=== PATIENT | female | born 1965 | race Caucasian/White ===

== ENCOUNTER → 2020-01-14 11:32 | Outpatient (BNVA) | payer OTHER, SELFPAY | PROVIDERS: Referring Provider Family Medicine; Visit Provider Specialist | DX: M25.512 Pain in left shoulder (principal) | CPT/HCPCS: 73030 ==

== ENCOUNTER → 2020-06-18 11:52 | Outpatient (BNVA) | payer MEDICARE, SELFPAY | PROVIDERS: Visit Provider Family Medicine | DX: G43.709 Chronic migraine without aura, not intractable, without status migrainosus (principal); E11.9 Type 2 diabetes mellitus without complications; J30.9 Allergic rhinitis, unspecified; R76.8 Other specified abnormal immunological findings in serum | CPT/HCPCS: 80053; 80061; 83036; 83721; 85025; 85651; 86140; 86431 ==

== ENCOUNTER 2020-06-30 17:14 | Outpatient (CLI) | payer MEDICARE, SELFPAY ==
--- NOTE | 2020-06-30 17:30 | MR_ITS ---
WS: [id number] MRI CERVICAL SPINE NONCONTRAST TECHNIQUE: Sagittal T1, T2 and STIR imaging. Axial T2, gradient, and fiesta imaging. CLINICAL INFORMATION: M54.12 - Radiculopathy, cervical region COMPARISON: None. FINDINGS: Straightening of the normal cervical lordosis. No high-grade central canal stenosis. Cord signal is n ormal. Anterior interbody cervical fusion C5-C6. C2-C3: Tiny central protrusion. Spinal canal and foramen are patent. C3-C4: Disc osteophyte complex with endplate ridging. Shallow bilobed central disc osteophyte protrus ion. Mild central canal stenosis. Mild right greater than left bony foraminal narrowing. C4-C5: Disc osteophyte complex with endplate ridging. Mild central canal stenosis. Mild left foramina l narrowing. C5-C6: Prior postoperative changes anterior interbody cervical fusion. Mild left and no significant r ight foraminal narrowing. Spinal canal is patent. C6-C7: Mild disc bulge with endplate ridging. Spinal canal and foramen are patent. Mild facet arthrop athy. C7-T1: Normal. Visualized brain stem structures: Normal. Prevertebral soft tissues: Normal. MR/MR cervical spin wo con* [id number] IMPRESSION: 1. Straightening of the normal cervical lordosis. Cord signal is normal. No hi gh-grade central canal stenosis. 2. Prior postoperative changes anterior interbody cervical fusion C5-C6. 3. Shallow bilobed central disc osteophyte protrusions C3-C4 with mild central canal stenosis. 4. Disc osteophyte complex C4-5 with mild central canal stenosis. 5. Mild bony foraminal narrowing worse at right C3-C4, left C4-C5, and left C5 -C6
== END 2020-06-30 17:15 | disposition home or self-care (01) ==
PROVIDERS: PCP Family Medicine; Visit Provider Family Medicine
DX: M54.12 Radiculopathy, cervical region (principal); M25.78 Osteophyte, vertebrae; M48.02 Spinal stenosis, cervical region
CPT/HCPCS: 72141

== ENCOUNTER → 2020-08-01 08:37 | Outpatient (BNVA) | payer MEDICARE, SELFPAY | PROVIDERS: PCP Family Medicine; Referring Provider Family Medicine; Visit Provider Orthopaedic Surgery | DX: M54.12 Radiculopathy, cervical region (principal); G89.29 Other chronic pain; R76.8 Other specified abnormal immunological findings in serum; M25.50 Pain in unspecified joint; Z79.899 Other long term (current) drug therapy; Z11.59 Encounter for screening for other viral diseases; M45.9 Ankylosing spondylitis of unspecified sites in spine; W57.XXXA Bitten or stung by nonvenomous insect and other nonvenomous arthropods, initial encounter; F17.210 Nicotine dependence, cigarettes, uncomplicated | CPT/HCPCS: 72050; 99204 ==

== ENCOUNTER 2020-08-01 11:40 | Outpatient (CLI) | payer MEDICARE, SELFPAY ==
--- NOTE | 2020-08-01 11:48 | XR_ITS ---
WS: [id number] Exam: XR foot RT 2V [id number] Date/Time of Exam: 08/01/2020 11:48 AM Reason For Exam: M25.50 - Pain in unspecified joint No acute fracture or dislocation. Mild degenerative change at the first MP joint. Posterior heel spur . Normal soft tissues. XR/XR foot RT 2V [id number] IMPRESSION: 1. Mild DJD of the first MP joint. 2. No sign of fracture or other significant finding.
--- NOTE | 2020-08-01 11:48 | XR_ITS ---
WS: [id number] Exam: XR foot LT 2V [id number] Date/Time of Exam: 08/01/2020 11:48 AM Reason For Exam: M25.50 - Pain in unspecified joint No fracture or dislocation. Mild DJD at the first MP joint. Small posterior heel spur. Normal soft ti ssues. XR/XR foot LT 2V [id number] IMPRESSION: 1. Minimal degenerative changes. Posterior calcaneal spur. 2. No fracture or other significant finding.
--- NOTE | 2020-08-01 11:48 | XR_ITS ---
WS: [id number] Exam: XR sacroiliac jts m 3V [id number] Date/Time of Exam: 08/01/2020 11:48 AM Reason For Exam: L40.9 - Psoriasis, unspecified No fracture or dislocation. Degenerative changes of both SI joints. The SI joints are open. Kenneth aggarwal XR/XR sacroiliac jts m 3V [id number] IMPRESSION: 1. Bilateral SI joint DJD. Osteopenia.
--- NOTE | 2020-08-01 11:48 | XR_ITS ---
WS: [id number] Exam: XR hand LT 2V [id number] Date/Time of Exam: 08/01/2020 11:48 AM Reason For Exam: R76.8 - Other specified abnormal immunological findings in serum No fracture or dislocation. Mild degenerative changes in the IP joints. Small bridging a soft tissue calcification between the proximal second and third metacarpals. Soft tissues are otherwise unremarka ble. No sign of a cortical erosions or periarticular bone demineralization. XR/XR hand LT 2V [id number] IMPRESSION: 1. Mild degenerative changes in the IP joints. No other significant finding.
--- NOTE | 2020-08-01 11:48 | XR_ITS ---
WS: [id number] Exam: XR hand RT 2V [id number] Date/Time of Exam: 08/01/2020 11:48 AM Reason For Exam: R76.8 - Other specified abnormal immunological findings in serum No acute fracture or dislocation. Minimal degenerative changes in the IP joints. No sign of the corti ricardo erosion or periarticular bone demineralization. Normal soft tissues. XR/XR hand RT 2V [id number] IMPRESSION: 1. Minimal degenerative changes in the IP joints. No other significant finding.
[2020-08-01 12:50] LABS: Basophils # 0.1 10^3/uL (0.0-0.1); Basophils % 0.9 %; Eosinophils # 0.2 10^3/uL (0.0-0.8); Eosinophils % 2.4 %; Hematocrit 43.4 % (37.0-47.0); Lymphocytes # 2.2 10^3/uL (0.8-4.8); Lymphocytes % 31.9 %; Mean Corpuscular HGB Conc 32.3 g/dL (30.0-36.0); Mean Corpuscular Hemoglobin 30.1 pg (28.0-34.0); Mean Corpuscular Volume 93.3 fL (81-99); Monocytes # 0.4 10^3/uL (0.2-0.9); Monocytes % 5.7 %; Neutrophils # 3.99 10^3/uL (1.8-7.7); Neutrophils % 58.7 %; Nucleated Red Blood Cells % 0 %; Platelet Count 147 10^3/cmm (130-400); Red Blood Count 4.65 10^6/uL (4.1-5.3); White Blood Count 6.8 10^3/uL (4.0-10.0)
[2020-08-01 13:10] LABS: Alanine Aminotransferase 17 U/L (0-33); Albumin Level 4.5 g/dL (3.5-5.2); Alkaline Phosphatase 80 IU/L (35-105); Anion Gap 14.9 (5-19); Aspartate Amino Transferase 13 U/L (0-32); Blood Urea Nitrogen 8 mg/dL (6-20); Calcium 9.6 mg/dL (8.5-10.5); Carbon Dioxide 26 mmol/L (22-29); Chloride 103 mmol/L (98-107); Creatine Phosphokinase 100 U/L (26-192); Ferritin 121 ng/mL (15-150); Globulin 2.8 g/dL (1.3-4.6); Glomerular Filtration Rate 166.3 mL/min (90-130); Glucose 133 mg/dL (65-115); Osmolality Calculated 290 mOsm/kg (285-295); Phosphorus 3.5 mg/dL (2.5-4.5); Potassium 3.9 mmol/L (3.5-5.1); Sodium 140 mmol/L (136-145); Total Bilirubin 0.3 mg/dL (0.15-1.2); Total Protein 7.3 g/dL (6.6-8.7)
[2020-08-01 13:53] LABS: Hepatitis B Core AB, Total Non-Reactive (Nonreactive); Hepatitis B Surface Antigen Non-Reactive (Nonreactive); Hepatitis C Virus Antibody Non-Reactive (Nonreactive)
[2020-08-04 11:23] LABS: Lymes IGG WB <0.90 index
[2020-08-04 14:26] LABS: COMPLEMENT COMPONENT C3C 147 mg/dL (83-193); COMPLEMENT COMPONENT C4C 27 mg/dL (15-57)
[2020-08-04 15:27] LABS: Cyclic Citrullinated Peptide <16 UNITS
[2020-08-04 16:03] LABS: COMPLEMENT, TOTAL (CH50) >60 U/mL (31-60)
[2020-08-05 15:07] LABS: THYROID PEROXIDASE ANTIBODIES 1 IU/mL (<9)
[2020-08-05 16:11] LABS: ANA SCREEN, IFA NEGATIVE (NEGATIVE); CENTROMERE B ANTIBODY <1.0 NEG AI (<1.0 NEG); JO-1 ANTIBODY <1.0 NEG AI (<1.0 NEG); RNP ANTIBODY <1.0 NEG AI (<1.0 NEG); SCL-70 ANTIBODY <1.0 NEG AI (<1.0 NEG); SJOGREN'S ANTIBODY (SS-A) <1.0 NEG AI (<1.0 NEG); SM ANTIBODY <1.0 NEG AI (<1.0 NEG); SS-B <1.0 NEG AI (<1.0 NEG)
[2020-08-05 18:41] LABS: HLA-B27 NEGATIVE (NEGATIVE)
[2020-08-10 00:28] LABS: DNA AB (DS) CRITHIDIA,IFA NEGATIVE (NEGATIVE)
== END 2020-08-01 11:41 | disposition home or self-care (01) ==
PROVIDERS: PCP Family Medicine; Visit Provider Internal Medicine
DX: M25.50 Pain in unspecified joint (principal); R76.8 Other specified abnormal immunological findings in serum; L40.9 Psoriasis, unspecified; Z51.81 Encounter for therapeutic drug level monitoring; D86.9 Sarcoidosis, unspecified; M45.9 Ankylosing spondylitis of unspecified sites in spine; M46.1 Sacroiliitis, not elsewhere classified; M85.88 Other specified disorders of bone density and structure, other site; M19.071 Primary osteoarthritis, right ankle and foot; M77.32 Calcaneal spur, left foot
CPT/HCPCS: 36415; 72202; 73120; 73620; 80053; 82550; 82728; 82955; 84100; 85025; 86160; 86162; 86235; 86255; 86376; 86617; 86704; 86803; 86812; 87340

== ENCOUNTER → 2020-09-18 11:46 | Outpatient (BNVA) | payer MEDICARE, SELFPAY | PROVIDERS: PCP Family Medicine; Visit Provider Psychiatry & Neurology Neurology | DX: M47.22 Other spondylosis with radiculopathy, cervical region (principal); F17.210 Nicotine dependence, cigarettes, uncomplicated | CPT/HCPCS: 95886; 95910 ==

== ENCOUNTER → 2020-11-14 10:11 | Outpatient (BNVA) | payer MEDICARE, SELFPAY | PROVIDERS: PCP Family Medicine; Visit Provider Orthopaedic Surgery | DX: Z20.822 Contact with and (suspected) exposure to COVID-19 (principal) | CPT/HCPCS: 87635 ==

== ENCOUNTER → 2020-11-19 09:12 | Day surgery (SDC) | payer MEDICARE, SELFPAY ==
[2020-11-17 12:03] VITALS: BMI 39.3
--- NOTE | 2020-11-17 13:32 | P.ANESASSM_ITS ---
Pre-Anesthetic Assessment Pre-Anesthetic Assessment: Height/Weight: Height 1.63 m Weight 103.873 kg Proposed Procedure: Operation Date: 11/19/20 14:25 Proposed Procedures p c 4/5 ACDF 17081, 69384, 33756, 20169 m47.22(Not Applicable) - Carlito Richard, DO Was Beta Daniela taken within 24 hours: N/A Was Clonidine taken within 24 hours: N/A Social: Social History: Tobacco and No alcohol Exam: Pre-Anes Outpt Exam: alert, oriented x 3 and regular rate & rhythm Airway: Submandibular: WNL Cervical ROM: WNL MP: 2 Dentition: Loose Additional comments: Missing several Pulmonary: Pulmonary: COPD CV/HEM: CV/HEM: HTN Metabolic: Metabolic: DM, Hyperlipidemia and Morbid obesity Musc/skel: Musc/skel: OA/DJD Anesthetic Plan: ASA status: 3 Anesthesia: General Risk of > 500 ml b lood loss (7ml/kg in children): No PFSH Anesthesia PFSH: Medical History Allergic rhinitis Asperger syndrome Asthma Chronic migraine Chronic radicular cervical pain Metoclopramide actually helps for her muscle spasms better than muscle relaxe rs. LAURA exposure affecting Mother took shot while Psoriasis Tinnitus of right ear Type 2 diabetes mellitus Surgical History H/O microdiscectomy H/O: hysterectomy Hx of tonsillectomy Social History Smoking and tobacco status: current every day smoker cigarettes Packs smoked per day: 2 Alcohol intake: never History of recent travel: No Female Reproductive History: Spontaneous abortions: No Data Anesthesia Cardiac Studies: No Data to Display
--- NOTE | 2020-11-18 13:33 | ANES.PREANE2 ---
Pre-Anesthetic Assessment Pre-Anesthetic Assessment: Height/Weight: Height 1.63 m Weight 103.873 kg Proposed Procedure: Operation Date: 11/19/20 11:10 Proposed Procedures p c 4/5 ACDF 69002, 00845, 18639, 29399 m47.22(Not Applicable) - Carlito Richard, DO Was Beta Daniela taken within 24 hours: N/A Was Clonidine taken within 24 hours: N/A Social: Social History: No alcohol and No tobacco Exam: Pre-Anes Outpt Exam: alert, oriented x 3, clear to auscultation bilaterally and regular rate & rhythm Airway: Submandibular: WNL Cervical ROM: Other (limited) MP: 2 Additional comments: OK dentition Pulmonary: Pulmonary: Asthma Metabolic: Metabolic: DM and Morbid obesity Musc/skel: Musc/skel: OA/DJD and RA Anesthetic Plan: ASA status: 3 Anesthesia: General Risk of > 500 ml blood loss (7ml/kg in children): No PFSH Anesthesia PFSH: Medical History Allergic rhinitis Asperger syndrome Asthma Chronic migraine Chronic radicular cervical pain Metoclopramide actually helps for her muscle spasms better than muscle relaxers. LAURA exposure affecting Mother took shot while Psoriasis Tinnitus of right ear Type 2 diabetes mellitus Surgical History H/O microdiscectomy H/O: hysterectomy Hx of tonsillectomy Social History Smoking and tobacco status: current every day smoker cigarettes Packs smoked per day: 2 Alcohol intake: never History of recent travel: No Female Reproductive History: Spontaneous abortions: No Data Anesthesia Cardiac Studies: No Data to Display
[2020-11-19 09:38] VITALS: BP 164/88; PULSE 76; RESP 18; TEMP 36.6; O2SAT 95
--- NOTE | 2020-11-19 09:49 | ANES.PAUD2 ---
Pre-Anesthetic Update Pre-Anesthetic Assessment: Date of Surgery/Procedure: 11/19/20 Proposed Procedure: Operation Date: 11/19/20 11:10 Proposed Procedures p c 4/5 ACDF 76649, 23808, 52351, 92744 m47.22(Not Applicable) - Carlito Richard, DO Any changes to Pre-Anesthetic Assessment?: No Exam: Pre-Anes Outpt Exam: alert, oriented x 3, clear to auscultation bilaterally and regular rate & rhythm Cardiac Studies: No Data to Display
[2020-11-19 10:11] LABS: Glucose Point of Care 125 mg/dL (70-110)
[2020-11-19] MEDS: ondansetron 4 MG Tablet PO (11:09)
[2020-11-19] MEDS: sodium chloride 0.9% 1,000 ML 30 ML IV (11:09)
[2020-11-19 11:50] LABS: Glucose Point of Care 112 mg/dL (70-110)
--- NOTE | 2020-11-19 13:25 | SUR.PREOP ---
Pt advised that she was feeling symptomatic effects of hypoglycemia and was needing to reschedule her surgery. The pt advised that she felt that she was not going to be able to make it to the extended projected surgical start time. Dr Richard was informed and advised that it was fine for her to reschedule.
== END ==
PROVIDERS: PCP Family Medicine; Visit Provider Orthopaedic Surgery
PROC: 0RB30ZZ Excision of Cervical Vertebral Disc, Open Approach (ICD-10-PCS; CPT 22551; principal; 2020-11-19 10:40)
DX: Z53.9 Procedure and treatment not carried out, unspecified reason (principal); J45.909 Unspecified asthma, uncomplicated; E11.9 Type 2 diabetes mellitus without complications; E66.01 Morbid (severe) obesity due to excess calories; Z68.39 Body mass index [BMI] 39.0-39.9, adult; M19.90 Unspecified osteoarthritis, unspecified site; M06.9 Rheumatoid arthritis, unspecified; F17.210 Nicotine dependence, cigarettes, uncomplicated
CPT/HCPCS: 36416; 82962; J0330; J1100; J1200; J2405; J2704; J3010; J3490; J7030; Q0162

== ENCOUNTER 2020-11-21 05:54 | Day surgery (SDC) | payer MEDICARE, SELFPAY ==
[2020-11-20 15:01] VITALS: BMI 39.3
[2020-11-21] VITALS (11 sets, daily range): BP systolic 122–148; BP diastolic 74–96; PULSE 69–81; RESP 14–20; TEMP 36.1–36.7; O2SAT 93–100
--- NOTE | 2020-11-21 | SCC_ITS ---
Procedure Done: 1. Anterior diskectomy C4/5 2. Insertion of Cage C4/5 3. Instrumentation with anterior plate from C4 and C5 4. Use of allograft 14.1 seconds of fluoroscopic guidance, for a cumulative dose of 4.54 mGy, was provided to Dr. Richard by the radiology department. C-arm images of the cervical spine were saved for the patient's permanent record. [facility]
--- NOTE | 2020-11-21 | XR_ITS ---
WS: [id number] Exam: XR cervical spine 3V* [id number] Date/Time of Exam: 11/21/2020 12:00 AM Reason For Exam: acdf Intraoperative AP and lateral C-arm images of the C-spine are submitted for evaluation. There is anterior plate and screw fixation of the C5 and C6. There are also anterior screws extending into the vertebral bodies of C4 and 5. An endotracheal tube is noted in the airway. No other signifi cant finding on this limited study.
[2020-11-21] MEDS: sodium chloride 0.9% 1,000 ML 30 ML IV (06:30)
[2020-11-21 06:41] LABS: Glucose Point of Care 137 mg/dL (70-110)
--- NOTE | 2020-11-21 06:48 | W.PM.OPSUD ---
Surgery/Procedure H&P Update DATE OF PROCEDURE: November 21, 2020 DATE H&P PERFORMED: 11/21/20 PREOP DIAGNOSIS: cervicla spondylosis with radiculopathy PLANNED PROCEDURE: Operation Date: 11/21/20 07:00 Proposed Procedures p c 4/5 ACDF 19498 33552 16151 85449 m47.22(Not Applicable) - Carlito Richard DO
--- NOTE | 2020-11-21 06:49 | PM.HP ---
Providers/Chief Complaint Primary Care Provider: Tequila Bee MD Chief Complaint: acdf History of Present Illness Sarahi Chang is a 55 year old female Details: she has been unable to sleep due to pain. Chief Complaint: neck pain muscle spams around ribs which causes difficulty with breathing Onset: 2016 Duration: years, worsening over the last year Characteristics: ache, numbness tingling into fingers, stress incontinence, Severity: 7/10 Location: neck pain Radiating symptoms: bilateral upper extremity pain and weakness, pain into ribs Aggravating factors: sitting for long periods, twisting, movement, side to side movements, looking over shoulder Alleviating factors: rest Neuro deficits: denies incontinence of bowel/bladder, saddle anesthesia. Prior tx: History of pervious neck and back surgery DOS ' C5/6 fusion, 07/2001 L5/s1 diskectomy in [place] chiropractor adjustments to 11/10 with some relief, y Review of Systems Narrative: General ROS: negative for weight changes, fever ENT ROS: negative for nasal congestion, drainage or bleeding, sore throat, dysphagia or ear pain Eyes: PERRL Hematological and Lymphatic ROS: negative for swollen glands or abnormal bleeding Endocrine ROS: negative for polyuria/polydpsia or new changes in weight Respiratory ROS: negative for cough, shortness of breath, or wheezing Cardiovascular ROS: negative for chest pain or dyspnea on exertion Gastrointestinal ROS: negative for reflux, abdominal pain, change in bowel habits, or black or bloody stools Musculoskeletal ROS: negative for back pain, neck pain, or joint pain or swelling except for current problem Neurological ROS: negative for TIA or stoke symptoms Skin: no rashes Medications/Allergies Home Medications Medication Instructions Recorded Confirmed Last Taken Type albuterol sulfate 90 mcg/actuation 2 puff INHALATION Q6H PRN 12/26/19 11/21/20 1 Day Ago History aerosol inhaler ~11/20/20 ciclopirox 0.77 % topical cream 1 applic TOPICAL BID 12/26/19 11/21/20 1 Day Ago History ~11/20/20 nebulizers #1 each 12/26/19 10/21/20 Unknown History rizatriptan 5 mg tablet 5 mg PO Q2H PRN 12/26/19 11/17/20 Unknown History ipratropium 0.5 mg-albuterol 3 mg 3 ml INHALATION Q4H PRN #180 ml 10/21/20 11/21/20 1 Day Ago Rx (2.5 mg base)/3 mL nebulization ~11/20/20 soln loratadine 10 mg capsule 10 mg PO .at bedtime 90 Days #90 10/21/20 11/21/20 1 Day Ago Rx cap ~11/20/20 metformin 1,000 mg tablet 1,000 mg PO BID 90 Days #180 tab 10/21/20 11/21/20 1 Day Ago Rx ~11/20/20 metoclopramide HCl 5 mg tablet 5 mg PO DAILY PRN 30 Days #90 tab 10/21/20 11/21/20 1 Day Ago Rx ~11/20/20 fluticasone propionate [Flonase] 1 spray INTRANASAL DAILY 11/17/20 11/21/20 1 Day Ago History ~11/20/20 Allergies Allergy/AdvReac Type Severity Reaction Status Date / Time adhesive tape Allergy rash Verified 11/21/20 06:17 azithromycin Allergy hives Verified 11/21/20 06:17 bupropion [From Wellbutrin] Allergy shaking Verified 11/21/20 06:17 codeine Allergy hives Verified 11/21/20 06:17 latex Allergy skin Verified 11/21/20 06:17 reaction moxifloxacin [Avelox] Allergy hives Verified 11/21/20 06:17 topiramate [Topamax] Allergy TIA Verified 11/21/20 06:17 PFSH Acute PFSH: Medical History Allergic rhinitis Asperger syndrome Asthma Chronic migraine Chronic radicular cervical pain Metoclopramide actually helps for her muscle spasms better than muscle relaxers. LAURA exposure affecting Mother took shot while Psoriasis Tinnitus of right ear Type 2 diabetes mellitus Surgical History H/O microdiscectomy H/O: hysterectomy Hx of tonsillectomy Social History Smoking and tobacco status: current every day smoker cigarettes Packs smoked per day: 2 Alcohol intake: never History of recent travel: No Female Reproductive History: Spontaneous abortions: No Vitals/I&O/Wt Last Vital Signs Temp 97 F L 11/21/20 06:21 Pulse 81 11/21/20 06:21 Resp 18 11/21/20 06:21 BP 122/81 11/21/20 06:21 Pulse Ox 96 11/21/20 06:21 Weight last 48 hrs Weight 229 lb Physical Exam Narrative: EXAM NARRATIVE: CONSTITUTIONAL: The patient is a normal appearing [] in no apparent distress. GENERAL: Patient in no acute distress. CARDIAC: Regular rate and rhythm. CHEST: Normal inspiratory effort, normal respiratory rate. ABDOMEN: Soft and nontender. SKIN: Clear, warm and intact. NEURO?PSYCH: The patient is alert and oriented to person, place and time. Sensorv /SILT Motor StrengthShoulder abduction C5 5/5Wrist extension C6 5/5Elbow extension C7 5/5Hand [employer] Production Supervisor C8 5/5Finger abduction T15/5 Radial/ Ulnar/ Median n intact LowerSensory (SILT)Motor StrengthHin flexion L2/3Ant/inner thigh 5/5Hip adduction L2/3 5/5Knee extension L4 Lat thigh, 5/5Toe dorsiflexion L5 5/5Ankle dorsiflexion L5/ G03Tpepddi flexion S1 5/5 DTRBleeps 2+Triceps 2+Brachioradialis 2+Patellar 2+Achilles 2+ MUSCULOSKELETAL: [] UPPEREXTREMITIES: The patient had full active ROM in fingers, wrist, elbow, and shoulder. The patient demonstrated ability to fully flex/extend/abduct/adduct fingers, make ok sign, cross 2nd/3rd digits, extend 1st digit fully.. Radial pulse 2+, CR<2 seconds. LOWER EXTREMITIES: Pt has full, active ROM of toes, ankle, knee, and hip. Dorsalis pedis/posterior tibialis pulses 2+, CR<2 seconds. SPINE: Skin warm, dry, intact. A&P Assessment and plan (1) Cervical spondylosis with radiculopathy: Patient is shown to have a chronic C5 radiculopathy. Patient has previous C5-6 ACDF. My plan is to do a C4-5 ACDF. She has failed conservative therapy at this point the risk meds explained to the patient was include bleed infection scar pain damage blood vessels nerves risk for surgery swallowing issues. 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
--- NOTE | 2020-11-21 07:02 | P.ANESUD_ITS ---
Pre-Anesthetic Update Pre-Anesthetic Assessment: Date of Surgery/Procedure: 11/21/20 Preop Roro gnosis: cervicla spondylosis with radiculopathy Proposed Procedure: Operation Date: 11/21/20 07:00 Proposed Procedures p c 4/5 ACDF 83689 88893 91718 40312 m47.22(Not Applicable) - Carlito Richard, DO Any changes to Pre-Anesthetic Assessment?: No Last Intake: Intake Last Liquid Date 11/20/20 Last Liquid Time 20:00 Last Solid Date 11/20/20 Last Solid Time 20:00 Labs Last 48hrs: Laboratory Results - last 48 hr 11/21/20 06:38 POC Glucose 137 H Vitals: Temperature 97 F L 11/21/20 06:21 Temperature Source Temporal Artery S can 11/21/20 06:21 Pulse Rate 81 11/21/20 06:21 Pulse Rhythm 11/21/20 06:13 Pulse Strength 3+ Normal 11/21/20 06:13 Respiratory Rate 18 11/21/20 06:21 Blood Pressure 122/81 11/21/20 06:21 Blood Pressure Jess n 94 11/21/20 06:21 Pulse Oximetry 96 11/21/20 06:21 Oxygen Delivery Me thod 11/21/20 06:21 Exam: Pre-Anes Outpt Exam: alert, oriented x 3, clear to auscultation bilaterally and regular rate & rhythm Cardiac Studies: No Data to Display
--- NOTE | 2020-11-21 08:40 | PM.OP ---
Operative Report Date of procedure: November 21, 2020 Pre-op Diagnosis: cervicla spondylosis with radiculopathy Post-op diagnosis: same Procedure Done: 1. Anterior diskectomy C4/5 2. Insertion of Cage C4/5 3. Instrumentation with anterior plate from C4 and C5 4. Use of allograft Surgeon: Carlito Richard Anesthesia: General Estimated blood loss (mL): 5 Condition: stable Disposition: PACU Procedure: 1. Anterior diskectomy C4/5 2. Insertion of Cage C4/5 3. Instrumentation with anterior plate from C4 and C5 4. Use of allograft The patient was taken to the operating room, where he underwent general endotracheal anesthesia without complications. He was then positioned supine on the operating table, and all areas of impingement were well padded. The arms were carefully padded and tucked at his sides. A roll was placed between the shoulder blades.. An x-ray was done to determine the appropriate level for the skin incision. The entire neck was then sterilely prepped and draped in the usual fashion. Neuromonitoring was attached prior to prepping. A transverse skin incision was made and carried down to the platysma muscle. This was then split in line with its fibers. Blunt dissection was carried down medial to the carotid sheath and lateral to the trachea and esophagus until the anterior cervical spine was visualized. A needle was placed into a disc and an x-ray was done to determine its location. The longus colli muscles were then elevated bilaterally with the electrocautery unit. Self-retaining retractors were placed deep to the longus colli muscle. Attention was brought to the C4/5 level that was confirmed on x-ray. The microscope was then brought in. A radical anterior discectomies were performed at C[]. This included complete removal of the anterior annulus, nucleus, and posterior annulus. The posterior longitudinal ligament was removed as were the posterior osteophytes. Foraminotomies were then accomplished bilaterally. This was done using a high speed david, kerrison rongeurs and curretes Once all of this was accomplished, the curved currette was used to check for any residual compression. The central canal was wide open as were the foramen. A high-speed bur was used to remove the cartilaginous endplates above and below the interspace. Bleeding cancellous bone was exposed. The disc space were measured and appropriate size cage were placed sterilely onto the field. Allograft graft was packed into the cages. The cage was then placed and there was good juxtaposition against the bleeding decorticated surfaces and good distraction of each interspace. Attention was brought to the next interspace. Two screws were then placed into each of the vertebral bodies at C4 through the cage and C5 through the cage. There was excellent purchase. A final x-ray was done confirming good position of the hardware and Cages. The locking screws were then applied, also with excellent purchase. Following a final copious irrigation, there was good hemostasis and no dural leaks. The carotid pulse was strong. The wounds were then closed in layers using 2-0 Vicryl suture for the platysma muscle, 2-0 Vicryl suture for the subcutaneous tissue, and 4-0 monocryl suture in a subcuticular skin closure. Glue was placed followed by application of a sterile dressing. The drain was hooked to bulb suction. A soft collar was applied. The patient was then carefully returned to the supine position on his hospital bed where he was reversed and extubated and taken to the recovery room having tolerated the procedure well.
--- NOTE | 2020-11-21 09:07 | SUR.PHASEI ---
0900- ORAL AIRWAY OUT, SIMPLE MASK AT 6LPM SAT 99%
--- NOTE | 2020-11-21 14:25 | ANE.PACU2 ---
Inpatient post-anesthesia follow up: Airway intact: Yes Vital signs: Temperature 98.1 F Pulse Rate 72 Respiratory Rate 18 Blood Pressure 143/95 Pulse Oximetry 93 Oxygen Delivery Me thod Room Air Oxygen Flow Rate 6 Fraction of Inspir ed Oxygen Hydration adequate: Yes Nausea and vomiting: No Pain level: 3 Mental status: Baseline
== END 2020-11-21 10:45 | disposition home or self-care (01) ==
PROVIDERS: PCP Family Medicine; Visit Provider Orthopaedic Surgery
PROC: 0RB30ZZ Excision of Cervical Vertebral Disc, Open Approach (ICD-10-PCS; CPT 22551; principal; 2020-11-21 07:00)
DX: M47.22 Other spondylosis with radiculopathy, cervical region (principal); J45.909 Unspecified asthma, uncomplicated; E11.9 Type 2 diabetes mellitus without complications; Z79.84 Long term (current) use of oral hypoglycemic drugs; F17.210 Nicotine dependence, cigarettes, uncomplicated
CPT/HCPCS: 20930; 22551; 22845; 22853; 36416; 72040; 76000; 82962; 97760; C1713; C9359; J0690; J7030; L0174

== ENCOUNTER → 2021-01-08 15:18 | Outpatient (BNVA) | payer MEDICARE, SELFPAY | PROVIDERS: PCP Family Medicine; Visit Provider Orthopaedic Surgery | DX: Z47.89 Encounter for other orthopedic aftercare (principal); M47.22 Other spondylosis with radiculopathy, cervical region | CPT/HCPCS: 72040 ==

== ENCOUNTER → 2021-02-10 10:55 | Outpatient (BNVA) | payer MEDICARE, SELFPAY | PROVIDERS: PCP Family Medicine; Visit Provider Orthopaedic Surgery | DX: Z47.89 Encounter for other orthopedic aftercare (principal); Z98.1 Arthrodesis status | CPT/HCPCS: 72040 ==

== ENCOUNTER → 2022-03-01 14:31 | Outpatient (BNVA) | payer MEDICARE, SELFPAY | PROVIDERS: PCP Family Medicine; Visit Provider Family Medicine | DX: E11.9 Type 2 diabetes mellitus without complications (principal); G43.709 Chronic migraine without aura, not intractable, without status migrainosus; J30.89 Other allergic rhinitis; J45.20 Mild intermittent asthma, uncomplicated; I10 Essential (primary) hypertension; Z13.220 Encounter for screening for lipoid disorders; Z13.6 Encounter for screening for cardiovascular disorders; M25.50 Pain in unspecified joint; E11.43 Type 2 diabetes mellitus with diabetic autonomic (poly)neuropathy; K31.84 Gastroparesis | CPT/HCPCS: 80053; 80061; 83036; 83735 ==

== ENCOUNTER → 2022-06-16 09:47 | Outpatient (BNVA) | payer MEDICARE, SELFPAY | PROVIDERS: PCP Family Medicine; Visit Provider Nurse Practitioner Family | DX: R10.30 Lower abdominal pain, unspecified (principal); R30.0 Dysuria; M53.3 Sacrococcygeal disorders, not elsewhere classified; M62.830 Muscle spasm of back | CPT/HCPCS: 80053; 85025; 87086 ==

== ENCOUNTER → 2023-03-16 10:14 | Outpatient (BNVA) | payer MEDICARE, SELFPAY | PROVIDERS: PCP Family Medicine; Visit Provider Family Medicine | DX: G43.709 Chronic migraine without aura, not intractable, without status migrainosus (principal); E11.9 Type 2 diabetes mellitus without complications; M54.12 Radiculopathy, cervical region; G89.29 Other chronic pain; Z23 Encounter for immunization; F17.210 Nicotine dependence, cigarettes, uncomplicated; Z12.11 Encounter for screening for malignant neoplasm of colon; Z13.220 Encounter for screening for lipoid disorders; Z13.6 Encounter for screening for cardiovascular disorders; Z12.2 Encounter for screening for malignant neoplasm of respiratory organs | CPT/HCPCS: 80053; 80061; 83036 ==

== ENCOUNTER 2023-04-16 07:44 | Emergency (ER) | payer MEDICARE, SELFPAY ==
[2023-04-16 07:49] VITALS: BP 168/107; PULSE 105; RESP 16; TEMP 37.5; O2SAT 97; BMI 39.3
--- NOTE | 2023-04-16 08:08 | CTR_ITS ---
PROCEDURE INFORMATION: Exam: CT Abdomen And Pelvis With Contrast Exam date and time: 04/16/2023 9:05 AM Age: 58 years old Clinical indication: Abdominal pain; Localized; Left lower quadrant (llq); Prior surgery; Surgery date: 6+ months; Surgery type: Hystosind; Additional info: Llq pain TECHNIQUE: Imaging protocol: Computed tomography of the abdomen and pelvis with contrast. Radiation optimization: All CT scans at this facility use at least one of these dose optimization techniques: automated exposure control; mA and/or kV adjustment per patient size (includes targeted exams where dose is matched to clinical indication); or iterative reconstruction. Contrast material: OMNI 350; Contrast volume: 100 ml; Contrast route: INTRAVENOUS (IV); REPORTING DATA: Count of CT and Cardiac NM exams in prior 12 months: This patient has received 0 known CTs and 0 known cardiac nuclear medicine studies in the 12 months prior to the current study. COMPARISON: CR XR sacroiliac jts m 3V [id number] 08/01/2020 12:17 PM RADIATION DOSE METRICS: Total DLP (mGy-cm): 1084.23 FINDINGS: Lungs: Lung bases are clear as visualized. Liver: Mild, diffuse fatty infiltration of the liver. Mild hepatomegaly. Otherwise, unremarkable. Gallbladder and bile ducts: Normal. No calcified stones. No ductal dilation. Pancreas: Normal. No ductal dilation. Spleen: Normal. No splenomegaly. Adrenal glands: 2 cm right adrenal benign myelolipoma or adenoma. Normal left adrenal gland. Kidneys and ureters: Normal. No hydronephrosis. Stomach and bowel: Multiple diverticula from the colon. No evidence of diverticulitis. No bowel obstruction. Otherwise, unremarkable. Appendix: Normal appendix. Intraperitoneal space: Unremarkable. No free air. No significant fluid collection. Vasculature: Moderate amount of arterial calcification. Otherwise, unremarkable. Lymph nodes: Unremarkable. No enlarged lymph nodes. Urinary bladder: Unremarkable as visualized. Reproductive: Hysterectomy. Bones/joints: Mild and moderate multilevel spondylosis. Otherwise, unremarkable. Soft tissues: Unremarkable. CT/CT abdomen pelvis w con* [id number] IMPRESSION: 1. No acute findings. 2. Additional details as above.
[2023-04-16 08:11] VITALS: BP 182/103; PULSE 103; RESP 17; O2SAT 97
[2023-04-16] MEDS: sodium chloride 0.9% 1,000 ML 999 ML IV (08:38)
[2023-04-16 08:45] LABS: Basophils # 0.1 10^3/uL (0.0-0.1); Basophils % 0.7 %; Eosinophils # 0.1 10^3/uL (0.0-0.8); Eosinophils % 1.7 %; Hematocrit 47.3 % (36-47); Lymphocytes # 0.6 10^3/uL (0.8-4.8); Lymphocytes % 7.7 %; Mean Corpuscular HGB Conc 32.6 g/dL (30-55); Mean Corpuscular Hemoglobin 30.5 pg (27-33); Mean Corpuscular Volume 93.7 fl (85-98); Mean Platelet Volume 12.4 fL (7.4-10.4); Monocytes # 0.5 10^3/uL (0.2-0.9); Monocytes % 6.5 %; Neutrophils # 6.25 10^3/uL (1.8-7.7); Neutrophils % 82.3 %; Nucleated Red Blood Cells % 0 %; Platelet Count 129 10^3/cmm (157-399); Red Blood Count 5.05 10^6/uL (3.85-5.65); Red Cell Distribution Width 13.1 % (12.1-15.1); White Blood Count 7.58 10^3/uL (3.29-11.43)
[2023-04-16 09:01] LABS: Alanine Aminotransferase 31 U/L (0-33); Albumin Level 4.8 g/dL (3.5-5.2); Alkaline Phosphatase 96 U/L (35-105); Anion Gap 17.1 (5-19); Aspartate Amino Transferase 30 U/L (0-32); Blood Urea Nitrogen 7 mg/dL (6-20); Calcium 9.9 mg/dL (8.5-10.5); Carbon Dioxide 25 mmol/L (22-29); Chloride 99 mmol/L (98-107); Globulin 3.2 g/dL (1.3-4.6); Glucose 191 mg/dL (65-115); Lipase 87 U/L (13-60); Osmolality Calculated 287 mOsm/kg (285-295); Potassium 4.1 mmol/L (3.5-5.1); Sodium 137 mmol/L (136-145); Total Bilirubin 0.3 mg/dL (0.15-1.2)
[2023-04-16] MEDS: iohexol 350 mg/mL 500 mL Btl (per mL) IV (09:07)
[2023-04-16 09:17] LABS: Add Urine Microscopic? NO; Charge for UA Resulting for Rev
[2023-04-16 09:40] LABS: Bilirubin Urine Neg (Negative); Blood Urine Neg (Negative); Glucose Urine UA Norm (Normal); Ketones Urine 1+ (Negative); Leukocyte Esterase Urine Negative (Negative); Nitrate Urine Negative (Negative); Protein Urine Neg (Negative); Specific Gravity, Urine 1.015 (1.005-1.030); Urine Appearance Clear (CLEAR); Urine Color Yellow (Yellow); Urobilinogen Urine Norm (Negative); pH Urine 5 (5-7)
--- NOTE | 2023-04-16 09:47 | ED_ITS ---
HPI - Abdominal Pain General: Chief Complaint: Abdominal Pain Stated Complaint: abd pain, diagns diverticulitis Time Seen by Provider: 04/16/23 07:56 History of Present Illness: This patient is a 58-year-old white female who presents to the ER complaining of lower abdominal pain. Patient states that she was diagnosed with diverticulitis 2 weeks ago. She has been on antibiotics for the past 10 days. She has been taking ciprofloxacin and Flagyl. She continues to have some mild lower abdominal pain. She feels like she may be running a low-grade fever. She has not had any associated nausea, vomiting, constipation or diarrhea. She does have some urgency with urination but no dysuria. Past medical history includes alpha gal, diverticulosis and back pain. Past surgical history includes a hysterectomy. Review of Systems General: Reports: 10 or more systems reviewed and unremarkable except in HPI and below GI: Reports: abdominal pain PFSH ED PFSH: Medical History (Updated 04/16/23 @ 09:47 by Osmany Haji MD) Allergic rhinitis Asperger syndrome Asthma Chronic migraine Chronic radicular cervical pain Metoclopramide actually helps for her muscle spasms better than muscle relaxers. LAURA exposure affecting Mother took shot while Psoriasis Sigmoid diverticulitis Tinnitus of right ear Type 2 diabetes mellitus Surgical History H/O microdiscectomy H/O: hysterectomy Hx of tonsillectomy Social History Smoking and tobacco/nicotine status: current every day tobacco/nicotine user cigarettes Packs smoked per day: 2 Alcohol intake: never Substance/Drug Use: never Female Reproductive History: Spontaneous abortions: No Physical Exam Const: COMMON NORMALS: no acute distress, patient oriented x3 and no limitations GENERAL APPEARANCE: cooperative and comfortable HENMT: COMMON NORMALS: normocephalic, atraumatic, Normal nasal mucous membranes and turbinates present, moist oral mucous membranes and oropharynx nor mal HEAD & SCALP: normal to inspection, normocephalic and atraumatic FACE & SINUS: normal facial exam NOSE: Normal nasal mucous membranes and turbinates present Eye: COMMON NORMALS: Equal, round and reactive pupils present, EOMs intact bilaterally and conjunctivae normal GENERAL EYE: appearance normal, both eyes and all related structures CONJUNCTIVA: Yes conjunctivae normal PUPIL: Yes Equal, round and reactive pupils present Neck/C-Spine: COMMON NORMALS: supple and no JVD Chest: COMMONS NORMALS: normal inspection of the chest Resp: COMMON NORMALS: normal respiratory effort and clear to auscultation bilaterally AUSCULTATION: clear to auscultation bilaterally Cardio: COMMON NORMALS: no JVD, regular rate, regular rhythm, No gallops p resent (Cardio), No murmurs present (Cardio) and No rub (Cardio) RATE: re gular rate RHYTHM: regular rhythm GI: COMMON NORMALS: Normal to inspection, nondistended, normoactive bowel sounds present and Soft to palpation AUSCULTATION: Yes normoactive bowel sounds PALPATION: Yes Soft to palpation OTHER: Mild diffuse lower abdominal tenderness. No rebound or guarding tenderness. : COMMON NORMALS: Yes no CVA tenderness BLADDER/KIDNEY EXAM: Yes no CVA tenderness Back/Pelvis: COMMON NORMALS: no CVA tenderness and thoracic and lumbar spine normal to inspection Extremity: COMMON NORMALS: normal to inspection Neuro: COMMON NORMALS: patient oriented x3 and CN's II-XII intact bilaterally Psych: COMMON NORMALS: mental status grossly normal, Normal thought process present and cooperative THOUGHT PROCESS: Normal thought process present Skin: COMMON NORMALS: no rashes or lesions noted, turgor normal and no ja undice GENERAL SKIN EXAM: no rashes or lesions noted and turgor normal Course Vital Signs: Vital signs: Vital Signs Temperature 99.5 F 04/16/23 07:49 Pulse Rate 103 H 04/16/23 08:11 Respiratory Rate 17 04/16/23 08:11 Blood Pressure 182/103 04/16/23 08:11 Pulse Oximetry 97 04/16/23 08:11 Oxygen Delivery Me thod Room Air 04/16/23 08:11 MDM - Abdominal Pain Medical Decision Making CBC was normal. CMP normal except for a blood sugar of 191. Lipase was 87. Urine analysis normal. CT scan of the abdomen and pelvis was read by the radiologist as normal. Not sure what is causing the patient's abdominal pain. She does not appear to have diverticulitis at this time. She may be having some discomfort or bowel spasm which might be secondary to the antibiotics. She is finished with the antibiotics now. I did prescribe Bentyl for possible bowel spasm. Recommended she follow-up with her primary care physician next week for recheck. She was discharged in stable condition. Lab Data 04/16/23 08:35 04/16/23 08:35 Labs/Radiology: Radiology Impressions Abdomen/Pelvis CT 04/16/23 08:08 IMPRESSION: 1. No acute findings. 2. Additional details as above. Laboratory Results WBC 7.58 10^3/uL (3.29-11.43) 04/16/23 08:35 RBC 5.05 10^6/uL (3.85-5.65) 04/16/23 08:35 Hgb 15.40 g/dL (11.27-16.99) 04/16/23 08:35 Hct 47.3 % (36-47) H 04/16/23 08:35 MCV 93.7 fl (85-98) 04/16/23 08:35 MCH 30.5 pg (27-33) 04/16/23 08:35 MCHC 32.6 g/dL (30-55) 04/16/23 08:35 RDW 13.1 % (12.1-15.1) 04/16/23 08:35 Plt Count 129 10^3/cmm (157-399) L 04/16/23 08:35 MPV 12.4 fL (7.4-10.4) H 04/16/23 08:35 Neut % (Auto) 82.3 % 04/16/23 08:35 Lymph % (Auto) 7.7 % 04/16/23 08:35 [place] % (Auto) 6.5 % 04/16/23 08:35 Eos % (Auto) 1.7 % 04/16/23 08:35 Baso % (Auto) 0.7 % 04/16/23 08:35 Neut # (Auto) 6.25 10^3/uL (1.8-7.7) 04/16/23 08:35 Lymph # (Auto) 0.6 10^3/uL (0.8-4.8) L 04/16/23 08:35 [place] # (Auto) 0.5 10^3/uL (0.2-0.9) 04/16/23 08:35 Eos # (Auto) 0.1 10^3/uL (0.0-0.8) 04/16/23 08:35 Baso # (Auto) 0.1 10^3/uL (0.0-0.1) 04/16/23 08:35 Nucleated RBC % (auto) 0 % 04/16/23 08:35 Nucleated RBCs # 0.0 /100WBC 04/16/23 08:35 Sodium 137 mmol/L (136-145) 04/16/23 08:35 Potassium 4.1 mmol/L (3.5-5.1) 04/16/23 08:35 Chloride 99 mmol/L (98-107) 04/16/23 08:35 Carbon Dioxide 25 mmol/L (22-29) 04/16/23 08:35 Anion Gap 17.1 (5-19) 04/16/23 08:35 BUN 7 mg/dL (6-20) 04/16/23 08:35 Creatinine 0.6 mg/dL (0.5-0.9) 04/16/23 08:35 GFR Calculation 103.0 mL/min (90-130) 04/16/23 08:35 Glucose 191 mg/dL (65-115) H 04/16/23 08:35 Calculated Osmolality 287 mOsm/kg (285-295) 04/16/23 08:35 Calcium 9.9 mg/dL (8.5-10.5) 04/16/23 08:35 Total Bilirubin 0.3 mg/dL (0.15-1.2) 04/16/23 08:35 AST 30 U/L (0-32) 04/16/23 08:35 ALT 31 U/L (0-33) 04/16/23 08:35 Alkaline Phosphatase 96 U/L (35-105) 04/16/23 08:35 Total Protein 8.0 g/dL (6.6-8.7) 04/16/23 08:35 Albumin 4.8 g/dL (3.5-5.2) 04/16/23 08:35 Globulin 3.2 g/dL (1.3-4.6) 04/16/23 08:35 Lipase 87 U/L (13-60) H 04/16/23 08:35 Urine Color Yellow (Yellow) 04/16/23 08:50 Urine Appearance Clear (CLEAR) 04/16/23 08:50 Urine pH 5 (5-7) 04/16/23 08:50 Ur Specific [place] 1.015 (1.005-1.030) 04/16/23 08:50 Urine Protein Neg (Negative) 04/16/23 08:50 Urine Glucose (UA) Norm (Normal) 04/16/23 08:50 Urine Ketones 1+ (Negative) H 04/16/23 08:50 Urine Blood Neg (Negative) 04/16/23 08:50 Urine Nitrate Negative (Negative) 04/16/23 08:50 Urine Bilirubin Neg (Negative) 04/16/23 08:50 Urine Urobilinogen Norm mg/dL (Negative) 04/16/23 08:50 Ur Leukocyte Esterase Negative (Negative) 04/16/23 08:50 All radiology interpretation(s) finalized by discharge Discharge Plan Discharge Patient Disposition: Home Clinical Impression: Abdominal pain Condition: Stable Prescriptions: New dicyclomine 10 mg capsule 10 mg PO QID PRN (Reason: abdominal pain) Qty: 30 0RF No Action (DME) nebulizers Misc See Rx Instructions .ROUTE .MEDSUPPLY Qty: 1 Rx Instructions: As directed rizatriptan 5 mg tablet 5 mg PO Q2H PRN (Reason: Migraine Headache) Rx Instructions: do not exceed 6 doses per 24 hrs ciclopirox [Loprox (as olamine)] 0.77 % cream 1 applic TOPICAL BID (DME) nebulizer accessories Kit See Rx Instructions .Route Qty: 50 0RF Rx Instructions: As directed, tubing, supplies, etc miscellaneous medical supply Misc See Rx Instructions miscellaneous .COMPLEX Qty: 1 0RF Rx Instructions: spacer for inhaler miscellaneous; azelastine 137 mcg (0.1 %) aerosol,spray 1 spray intranasal BID Rx Instructions: administer into each nostril ipratropium-albuterol 0.5 mg-3 mg(2.5 mg base)/3 mL solution for nebulization 3 ml inhalation Q4H PRN (Reason: wheezing) Qty: 180 3RF Flonase Sensimist 27.5 mcg/actuation spray,suspension 2 spray intranasal DAILY Qty: 9.1 5RF Rx Instructions: into each nostril albuterol sulfate [ProAir HFA] 90 mcg/actuation HFA aerosol inhaler 2 puff INHALATION Q6H PRN (Reason: Allergic Symptoms) Qty: 8.5 5RF metoclopramide HCl 5 mg tablet 5 mg PO DAILY PRN (Reason: nausea, pain) 30 Days Qty: 90 5RF metformin 1,000 mg tablet See Rx Instructions .ROUTE .COMPLEX Qty: 180 1RF Dose Instruction: TAKE 1 TABLET TWICE A DAY Rx Instructions: TAKE 1 TABLET TWICE A DAY methocarbamol 750 mg tablet 750 mg PO BID PRN (Reason: spasms) 30 Days Qty: 60 5RF metronidazole 500 mg tablet 500 mg PO Q8H 7 Days Qty: 21 0RF ciprofloxacin HCl 500 mg tablet 500 mg PO BID 10 Days Qty: 20 0RF Discharge Orders: Discharge ED (Routine); Ordered 04/16/23 Ordered By: Osmany Haji Referrals: Tequila Bee MD [Primary Care Provider] - Patient Instructions: Abdominal Pain (ED), Opioid Safety, Pain Management Coding Level of Care Code ED 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
== END 2023-04-16 09:58 | disposition home or self-care (01) ==
PROVIDERS: Emergency Provider Emergency Medicine; PCP Family Medicine
DX: R10.30 Lower abdominal pain, unspecified (principal); Z79.84 Long term (current) use of oral hypoglycemic drugs; F17.210 Nicotine dependence, cigarettes, uncomplicated; F84.5 Asperger's syndrome; E11.9 Type 2 diabetes mellitus without complications
CPT/HCPCS: 74177; 80053; 81003; 83690; 85025; 99285; J7030; Q9967

== ENCOUNTER → 2023-08-09 11:09 | Outpatient (BNVA) | payer MEDICARE, SELFPAY | PROVIDERS: PCP Family Medicine; Visit Provider Family Medicine | DX: I10 Essential (primary) hypertension (principal); E11.9 Type 2 diabetes mellitus without complications; R00.2 Palpitations | CPT/HCPCS: 85025 ==

== ENCOUNTER → 2023-08-12 11:11 | Outpatient (BNVA) | payer MEDICARE, SELFPAY | PROVIDERS: PCP Family Medicine; Referring Provider Family Medicine; Visit Provider Family Medicine | DX: I10 Essential (primary) hypertension (principal); E11.9 Type 2 diabetes mellitus without complications; R00.2 Palpitations | CPT/HCPCS: 80053; 83036; 83735; 84443; 85025 ==

== ENCOUNTER → 2023-09-23 09:21 | Outpatient (BNVA) | payer MEDICARE, SELFPAY | PROVIDERS: PCP Family Medicine; Referring Provider Family Medicine; Visit Provider Family Medicine | DX: M54.12 Radiculopathy, cervical region (principal); G89.29 Other chronic pain; M54.9 Dorsalgia, unspecified; M47.894 Other spondylosis, thoracic region; M47.896 Other spondylosis, lumbar region; M47.892 Other spondylosis, cervical region; M85.88 Other specified disorders of bone density and structure, other site | CPT/HCPCS: 72040; 72070; 72100 ==

== ENCOUNTER → 2024-10-12 15:28 | Outpatient (BNVA) | payer MEDICARE, SELFPAY | PROVIDERS: PCP Family Medicine; Visit Provider Family Medicine | DX: M43.22 Fusion of spine, cervical region (principal); Z98.890 Other specified postprocedural states; M96.89 Other intraoperative and postprocedural complications and disorders of the musculoskeletal system; M19.011 Primary osteoarthritis, right shoulder; M75.31 Calcific tendinitis of right shoulder | CPT/HCPCS: 72040; 73030 ==

== ENCOUNTER → 2024-11-20 12:57 | Outpatient (BNVA) | payer MEDICARE, SELFPAY | PROVIDERS: PCP Family Medicine; Visit Provider Family Medicine | DX: E11.9 Type 2 diabetes mellitus without complications (principal); I10 Essential (primary) hypertension | CPT/HCPCS: 80053; 80061; 83036 ==